=== PATIENT | female | born 1990 | race African-American/Black ===

== ENCOUNTER 2017-02-07 11:17 | Emergency (ER) | payer BC ==
--- NOTE | 2017-02-07 11:36 | ER Document Report ---
HPI - HPI Pain Level: 5 - REPRODUCTIVE Reproductive: DENIES: : - DERM Skin Color: Normal Past Medical History - Social History Family History: Arthritis, CAD, CVA, DM, Hyperlipidemia, Hypertension, Malignancy, Thyroid Disfunction Patient has suicidal ideation: No Patient has homicidal ideation: No Pulmonary Medical History: Reports: Hx Bronchitis, Hx Pneumonia Renal/ Medical History: Denies: Hx Peritoneal Dialysis Past Surgical History: Reports: Hx Tonsillectomy - Immunizations Hx Diphtheria, Pertussis, Tetanus Vaccination: No - declined Vertical Provider Document - INFECTION CONTROL TRAVEL OUTSIDE OF THE [place] IN LAST 30 DAYS: No - RESPIRATORY O2 Sat by Pulse Oximetry: 99 Course - Vital Signs Vital signs: Temp Pulse Resp BP Pulse Ox 98.4 F 102 H 17 121/88 H 99 02/07/17 11:23 02/07/17 11:23 02/07/17 11:23 02/07/17 11:23 02/07/17 11:23
[2017-02-07] MEDS ORDERED: CLINDAMYCIN 600 MG/D5W RTU 50 ML IV ONE (11:41)
[2017-02-07] MEDS ORDERED: DEXAMETHASONE SOD PHOS INJ 10 MG/1 ML VIAL PO ONE (11:43)
--- NOTE | 2017-02-07 11:48 | ER Document Report ---
HPI - HPI Patient complains to provider of: right upper eyelid stye Onset: Other - 3 days ago Onset/Duration: Gradual, Persistent, Worse Pain Level: 5 Context: 26-year-old female with a history of a left eyelid stye that resolved with warm compresses in spontaneous drainage, is now complaining of a stye in the right medial upper lid with swelling and pain that extends along the right upper lid margin. She has a history of MRSA. She states her vision is normal out of the right eye. Associated Symptoms: None Exacerbated by: Movement - Eyelid Relieved by: Denies Similar symptoms previously: Yes - left eyelid Recently seen / treated by doctor: No - ROS ROS below otherwise negative: Yes Systems Reviewed and Negative: Yes All other systems reviewed and negative - REPRODUCTIVE Reproductive: DENIES: : - DERM Skin Color: Normal Past Medical History - General Information source: Patient - Social History Smoking Status: Current Every Day Smoker Frequency of alcohol use: None Drug Abuse: None Lives with: Family Family History: Arthritis, CAD, CVA, DM, Hyperlipidemia, Hypertension, Malignancy, Thyroid Disfunction Patient has suicidal ideation: No Patient has homicidal ideation: No Pulmonary Medical History: Reports: Hx Bronchitis, Hx Pneumonia Renal/ Medical History: Denies: Hx Peritoneal Dialysis Past Surgical History: Reports: Hx Tonsillectomy - Immunizations Hx Diphtheria, Pertussis, Tetanus Vaccination: No - declined Vertical Provider Document - CONSTITUTIONAL Agree With Documented VS: Yes Exam Limitations: No Limitations - INFECTION CONTROL TRAVEL OUTSIDE OF THE [place] IN LAST 30 DAYS: No - HEENT HEENT: Normocephalic, PERRLA. negative: Conjuctival Injection Notes: Medial right upper eyelid abscess at the tear duct, cellulitis extending along the eyelash border, puffy superior upper eyelid, and pink inferior orbital skin - NECK Neck: Supple - RESPIRATORY Respiratory: Breath Sounds Normal, No Respiratory Distress O2 Sat by Pulse Oximetry: 99 - CARDIOVASCULAR Cardiovascular: Regular Rate, Regular Rhythm - MUSCULOSKELETAL/EXTREMETIES Musculoskeletal/Extremeties: KIMBERLY ALVAREZ - NEURO Level of Consciousness: Awake, Alert, Appropriate - DERM Integumentary: Warm, Dry Course - Re-evaluation Re-evalutation: 02/07/17 12:53 Dr. Valenzuela looked at the patient warm compresses oral antibiotics is fine. - Vital Signs Vital signs: Temp Pulse Resp BP Pulse Ox 98.4 F 102 H 17 121/88 H 99 02/07/17 11:23 02/07/17 11:23 02/07/17 11:23 02/07/17 11:23 02/07/17 11:36 - Laboratory Result Diagrams: 02/07/17 12:10 02/07/17 12:10 Discharge - Discharge Clinical Impression: Blepharitis Qualifiers: Blepharitis type: unspecified type Laterality: bilateral Eyelid: both upper and lower Qualified Code(s): H01.001 - Unspecified blepharitis right upper eyelid Stye Qualifiers: Laterality: right Eyelid: upper Qualified Code(s): H00.011 - Hordeolum externum right upper eyelid Condition: Good Disposition: HOME, SELF-CARE Instructions: Clindamycin ([facility]), Use of [id number] Ibuprofen ([facility]), Warm Packs ([facility]), Sty ([facility]), Acetaminophen Additional Instructions: Wash her eyelids with baby shampoo and fingernails to remove makeup and oils Warm compress to the right eye stye 4 times a day for 30 minutes Return to the emergency room if worse Take the antibiotics until gone Return to the emergency room any concerns Please complete the patient satisfaction survey if you get one, and return it.. If you do not receive a survey, then you can go to the [facility] website, [email or web address] and place your comments about your very good care. Thank you very much. It was a pleasure being your medical provider today. Prescriptions: Ibuprofen [Motrin 600 mg Tablet] 600 mg PO Q8HP PRN #30 tablet PRN Reason: Clindamycin HCl [Cleocin 150 mg Capsule] 300 mg PO TID #42 capsule Forms: Return to Work
[2017-02-07 12:24] LABS: ABSOLUTE BASOPHILS # (AUTO) 0.1 10^3/uL (0.0-0.2); ABSOLUTE EOSINOPHILS # (AUTO) 0.1 10^3/uL (0.0-0.6); ABSOLUTE LYMPHOCYTES (AUTO) 2.3 10^3/uL (0.5-4.7); ABSOLUTE MONOCYTES (AUTO) 0.5 10^3/uL (0.1-1.4); BASOPHILS % (AUTO) 1.1 % (0-2); EOSINOPHILS % (AUTO) 1.3 % (0-6); HEMATOCRIT 32.2 % (36.0-47.0); HEMOGLOBIN 11.3 g/dL (12.0-15.5); HGB HCT DIFFERENCE 1.7; LYMPHOCYTES % (AUTO) 38.6 % (13-45); MEAN CORPUSCULAR HEMOGLOBIN 30.6 pg (27.0-33.4); MEAN CORPUSCULAR HGB CONC 35.1 g/dL (32.0-36.0); MEAN CORPUSCULAR VOLUME 87 fl (80-97); MONOCYTES % (AUTO) 8.1 % (3-13); RED BLOOD COUNT 3.69 10^6/uL (3.72-5.28); RED CELL DISTRIBUTION WIDTH 13.4 % (11.5-14.0); SEGMENTED NEUTROPHILS % (AUTO) 50.9 % (42-78)
[2017-02-07 12:37] LABS: ALANINE AMINOTRANSFERASE 29 U/L (9-52); ALBUMIN 4.6 g/dL (3.5-5.0); ALKALINE PHOSPHATASE 66 U/L (38-126); ANION GAP 14 (5-19); ASPARTATE AMINO TRANSFERASE 15 U/L (14-36); BILIRUBIN,DIRECT 0.1 mg/dL (0.0-0.4); BILIRUBIN,TOTAL 0.6 mg/dL (0.2-1.3); BLOOD UREA NITROGEN 14 mg/dL (7-20); CALCIUM 9.4 mg/dL (8.4-10.2); CARBON DIOXIDE 23 mmol/L (22-30); CHLORIDE 106 mmol/L (98-107); CREATININE RESULT 0.73 mg/dL (0.52-1.25); GLUCOSE 91 mg/dL (75-110); POTASSIUM 3.7 mmol/L (3.6-5.0); SODIUM 143.3 mmol/L (137-145); TOTAL PROTEIN 8.3 g/dL (6.3-8.2)
[2017-02-07] MEDS ORDERED: KETOROLAC TROMETHAMINE INJ/PF 30 MG/1 ML SDV IV ONE (12:55)
[2017-02-07 13:22] VITALS: BP 111/75
== END 2017-02-07 13:34 | disposition home or self-care (01) ==
LOC: ER 11:17
DX: H00.011 Hordeolum externum right upper eyelid (principal); H01.001 Unspecified blepharitis right upper eyelid; F17.200 Nicotine dependence, unspecified, uncomplicated; Z86.14 Personal history of Methicillin resistant Staphylococcus aureus infection
CPT/HCPCS: 99283; 96375; 96365; 36415; 85025; 80053; J1885; J1100

== ENCOUNTER 2017-03-31 10:43 | Emergency (ER) | payer BC ==
[2017-03-31 10:47] VITALS: BP 118/78
[2017-03-31] MEDS ORDERED: OXYCODONE-ACETAMINOPHEN 5-325 MG TABLET PO ONE (11:59)
[2017-03-31] MEDS ORDERED: LIDOCAINE 1% INJ-PF (10 MG/ML) 30 ML SDV INJ ONE (12:00)
--- NOTE | 2017-03-31 12:12 | ER Document Report ---
ED Skin Rash/Insect Bite/Abscs - General Chief Complaint: Abscess Stated Complaint: ARM PAIN Time Seen by Provider: 03/31/17 11:46 Mode of Arrival: Ambulatory Information source: Patient Notes: 26-year-old female presents to ED for abscess to both axilla. Started about 3- 4 days ago. Last menstrual period was March 17. Medical history is cellulitis and abscesses. TRAVEL OUTSIDE OF THE [place] IN LAST 30 DAYS: No - HPI Patient complains to provider of: Tender/swollen area Onset: Other - Days ago Onset/Duration: Gradual Quality of pain: Sharp, Throbbing Severity: Severe Pain Level: 5 Skin Character: Abscess Quality of rash: Painful Identify cause: No Exacerbated by: Movement Relieved by: Denies Similar symptoms previously: Yes Recently seen / treated by doctor: No - Related Data Allergies/Adverse Reactions: No Known Allergies Allergy (Verified 03/31/17 10:46) Past Medical History - General Information source: Patient - Social History Smoking Status: Current Some Day Smoker Cigarette use (# per day): Yes - Twice a week Chew tobacco use (# tins/day): No Family History: Arthritis, CAD, CVA, DM, Hyperlipidemia, Hypertension, Malignancy, Thyroid Disfunction Patient has suicidal ideation: No Patient has homicidal ideation: No Pulmonary Medical History: Reports: Hx Bronchitis, Hx Pneumonia EENT Medical History: Reports: None Neurological Medical History: Reports: None Endocrine Medical History: Reports: None Renal/ Medical History: Reports: None Malignancy Medical History: Reports: None GI Medical History: Reports: None Musculoskeltal Medical History: Reports None Skin Medical History: Reports None Psychiatric Medical History: Reports: None Traumatic Medical History: Reports: None Infectious Medical History: Reports: None Past Surgical History: Reports: Hx Tonsillectomy - Immunizations Hx Diphtheria, Pertussis, Tetanus Vaccination: No - declined Review of Systems - Review of Systems Constitutional: No symptoms reported EENT: No symptoms reported Cardiovascular: No symptoms reported Respiratory: No symptoms reported Gastrointestinal: No symptoms reported Genitourinary: No symptoms reported Female Genitourinary: No symptoms reported Musculoskeletal: No symptoms reported Skin: Other - From the bilateral axilla Hematologic/Lymphatic: No symptoms reported Neurological/Psychological: No symptoms reported -: Yes All other systems reviewed and negative Physical Exam - Vital signs Vitals: Temp Pulse Resp BP Pulse Ox 98.5 F 105 H 18 118/78 98 03/31/17 10:46 03/31/17 10:46 03/31/17 10:46 03/31/17 10:46 03/31/17 10:46 Interpretation: Normal - General General appearance: Appears well, Alert - HEENT Head: Normocephalic, Atraumatic Eyes: Normal Pupils: PERRL - Respiratory Respiratory status: No respiratory distress Chest status: Nontender Breath sounds: Normal Chest palpation: Normal - Cardiovascular Rhythm: Regular Heart sounds: Normal auscultation Murmur: No - Abdominal Inspection: Normal Distension: No distension Bowel sounds: Normal Tenderness: Nontender Organomegaly: No organomegaly - Back Back: Normal, Nontender - Extremities General upper extremity: Normal inspection, Nontender, Normal color, Normal ROM , Normal temperature General lower extremity: Normal inspection, Nontender, Normal color, Normal ROM , Normal temperature, Normal weight bearing. No: Geno's sign - Neurological Neuro grossly intact: Yes Cognition: Normal Orientation: AAOx4 Memo Coma Scale Eye Opening: Spontaneous [place] Coma Scale Verbal: Oriented Emmo Coma Scale Motor: Obeys Commands Memo Coma Scale Total: 15 Speech: Normal Motor strength normal: LUE, RUE, LLE, RLE Sensory: Normal - Psychological Associated symptoms: Normal affect, Normal mood - Skin Skin Temperature: Warm Skin Moisture: Dry Skin Color: Normal Skin irregularity: Abscess - Bilateral axilla Course - Vital Signs Vital signs: Temp Pulse Resp BP Pulse Ox 98.5 F 105 H 18 118/78 98 03/31/17 10:46 03/31/17 10:46 03/31/17 11:55 03/31/17 10:46 03/31/17 10:46 Procedures - Incision and Drainage Right axilla Type: Multiple Anesthetic type: 1% Lidocaine mL's of anesthetic: 6 Blade size: 11 I&D procedure: Other Incision Method: Incision made with needle Amount/type of drainage: large amount purulent drainage Left Axilla Type: Multiple Anesthetic type: 1% Lidocaine mL's of anesthetic: 6 Blade size: 11 I&D procedure: Other Incision Method: Incision made by scalpel Amount/type of drainage: large amount of purulent drainage Discharge - Discharge Clinical Impression: Abscess Condition: Stable Disposition: HOME, SELF-CARE Instructions: Family Physicians / Practices Additional Instructions: ABSCESS: You have an abscess (boil). This a pus-forming infection, usually due to staph. Some boils may be left to drain on their own, but most require lancing. From the time the tender lump first appears, it may be three or four days before the abscess is ready to kevan. Local heat and rest help at this stage of treatment. An antibiotic may prevent spread of the infection. Once the abscess is opened, packing may be placed into it. This is done so pus is not sealed inside by premature closure of the cavity. The packing will be removed at your follow-up visit or you may be advised to remove it yourself at home. Sometimes this packing must be replaced a few times during healing. The wound will heal with surprisingly little scar. Depending on the size and location of an abscess, healing can take one to four weeks. You may shower and wash the area around the incision site two or three times a day. Antibiotics may be prescribed, but are usually not necessary after an abscess has been drained. If you develop fever, chills, worsening pain, or increasing swelling in the area, call the doctor or return immediately. POST INCISION AND DRAINAGE: You have had an incision made to allow drainage of an abscess. The incision must remain open so that pus and debris can drain from the wound. If the abscess cavity is large, packing is placed. This keeps the tissues from collapsing and trapping pus inside, while the body shrinks the cavity. The packing may need to be replaced every day or two. The physician will instruct you on the packing. Keep a bulky dressing over the area. Replace it if it becomes saturated with blood or pus. Do not disturb the packing (if present). You may shower and cleanse the area with gentle soap and warm water two or three times a day. Local warmth may be soothing, and may promote faster healing. Return if you develop high fever or chills, or if you note spreading redness, increasing swelling, or increasing tenderness. MRSA CELLULITIS: You have an infection of your skin and underlying soft tissues called cellulitis. This is due to bacteria, which can enter through any break in the skin, or even through an irritated hair follicle. Untreated, cellulitis will usually worsen and may form an abscess which requires draining. Although many bacterial organisms can cause cellulitis and abscess formations, the most likely bacteria is Methicillin-Resistant Staph Aureus, or MRSA for short. Antibiotics are required. Usually, warm packs or warm soaks, and elevation of the infected area are recommended. You should start getting better within 24 to 36 hours. Most infections respond quickly to the right medication. Follow-up care is important, however, to check for abscess (boil) formation, unsuspected foreign body, or resistant infection. If you develop fever, chills, or if the area of infection is becoming rapidly more swollen or painful, call the doctor at once. ORAL NARCOTIC MEDICATION: You have been given a prescription for pain control. This medication is a narcotic. It's best taken with food, as nausea can result if taken on an empty stomach. Don't operate machinery or drive within six hours of taking this medication. Do not combine this medicine with alcohol, or with any medication which can cause sedation (such as cold tablets or sleeping pills) unless you get permission from the physician. Narcotics tend to cause constipation. If possible, drink plenty of fluids and eat a diet high in fiber and fruits. Epsom Salt Soaks Soak the wound area in a container of warm epsom salt water. If you can't get the wound area into a bucket or horvath, use a folded towel soaked in the epsom salt solution and apply to the area. Use clean hot tap water (about the temperature of a very warm bath), mixing in about one (1) teaspoon for every pint of water. Two gallon --> 16 teaspoons Epsom Salts One gallon --> 8 teaspoons Epsom Salts Two quarts --> 4 teaspoons Epsom Salts One quart --> 2 teaspoons Epsom Salts Soak the wound for about 20 minutes while gently moving it around in the water. Repeat this four (4) times a day. CEPHALEXIN: The antibiotic you've been prescribed is a member of the cephalosporin class. This type of antibiotic covers a wide variety of infections, including those of the skin, lungs, and urinary tract. It's useful for staph infections. This antibiotic is slightly similar to the penicillin family. In rare cases , a person who is allergic to penicillin will also be allergic to this medication. If you have had a severe allergic reaction to penicillin, and have not taken this antibiotic since that time, notify your doctor. Antibiotics which cover many germs ("broad spectrum" antibiotics) are more likely to cause diarrhea or "yeast" infections. Women prone to vaginal yeast problems may suffer an attack after taking this antibiotic. In infants, oral thrush (white spots "stuck" on the cheek) or yeast diaper rash may result. See your doctor if these problems occur. Call at once if you develop itching, hives , shortness of breath, or lightheadedness. TRIMETHOPRIM-SULFA: You have been given a prescription for trimethoprim-sulfa (TMS, Septra, Bactrim). This is a combination antibiotic of the sulfa class, often used for urinary tract infections, middle ear infections, bronchitis, shigella intestinal infection, and Pneumocystis pneumonia. TMS is usually well-tolerated. Occasional side effects include nausea and decreased appetite. Septra is not recommended for infants less than two months of age. Do not take this medication if you have experienced severe side effects or allergy to sulfa medicine. You should stop this medicine at once and contact your physician if you develop any rash, joint pain, shortness of breath, bruising, or jaundice ( yellow color in the skin), or if you develop any other new or unusual symptoms. FOLLOW-UP CARE: Most simple abscesses will not require a follow up visit. If you had packing placed in the abscess, remove it as instructed by the physician. If you have been referred to a physician for follow-up care, call the physicians office for an appointment as you were instructed or within the next two days. If you experience worsening or a significant change in your symptoms, return to the Emergency Department at any time for re-evaluation. Prescriptions: Cephalexin Monohydrate [Keflex 500 mg Capsule] 500 mg PO QID #28 capsule Hydrocodone/Acetaminophen [[place] 5-325 mg Tablet] 1 tab PO TIDP PRN #7 tablet PRN Reason: Sulfamethoxazole/Trimethoprim [Septra-Ds 800-160 mg Tablet] 1 tab PO BID #20 tablet Forms: Smoking Cessation Education, Return to Work
== END 2017-03-31 14:15 | disposition home or self-care (01) ==
LOC: ER 10:43
PROC: 0H9BXZZ Drainage of Right Upper Arm Skin, External Approach (ICD-10-PCS; principal; 2017-03-31)
PROC: 0H9CXZZ Drainage of Left Upper Arm Skin, External Approach (ICD-10-PCS; 2017-03-31)
DX: L02.412 Cutaneous abscess of left axilla (principal); L02.411 Cutaneous abscess of right axilla; F17.210 Nicotine dependence, cigarettes, uncomplicated
CPT/HCPCS: 10061; 99283; 87070; 87205; 87075; 87077; 87186; J3490

== ENCOUNTER 2017-04-16 19:00 | Emergency (ER) | payer BC ==
[2017-04-16] MEDS ORDERED: PROMETHAZINE HCL 25 MG TABLET PO ONE (21:23)
[2017-04-16] MEDS ORDERED: OXYCODONE-ACETAMINOPHEN 5-325 MG TABLET PO ONE (21:23)
--- NOTE | 2017-04-16 21:26 | ER Document Report ---
ED Medical Screen (RME) - General Chief Complaint: Abdominal Pain Stated Complaint: STOMACH PAIN Time Seen by Provider: 04/16/17 21:20 Notes: 26-year-old female, has 2 complaints. First is about 3 days of generalized abdominal pain, worst in the lower abdomen, also radiates to flank on both sides occasionally, associated vomiting and fever/chills yesterday, no vomiting today. Patient also states she has an abscess in her left axillary area which had some drainage but is now getting harder, she has had drained abscesses in the past. P last month. She denies any daily medications. TRAVEL OUTSIDE OF THE [place] IN LAST 30 DAYS: No - Related Data Allergies/Adverse Reactions: No Known Allergies Allergy (Verified 03/31/17 10:46) Past Medical History Pulmonary Medical History: Reports: Hx Bronchitis, Hx Pneumonia Renal/ Medical History: Denies: Hx Peritoneal Dialysis Past Surgical History: Reports: Hx Tonsillectomy - Immunizations Hx Diphtheria, Pertussis, Tetanus Vaccination: No - declined Physical Exam - Vital signs Vitals: Temp Pulse Resp BP Pulse Ox 98.5 F 84 18 126/87 H 100 04/16/17 19:18 04/16/17 19:18 04/16/17 19:18 04/16/17 19:18 04/16/17 19:18 - Abdominal Tenderness: Tender - generalized non-specific tenderness - Skin Skin irregularity: Abscess - indurated abscess with dried discharge over the head in left axilla Course - Vital Signs Vital signs: Temp Pulse Resp BP Pulse Ox 98.5 F 84 18 126/87 H 100 04/16/17 19:18 04/16/17 19:18 04/16/17 19:18 04/16/17 19:18 04/16/17 19:18
[2017-04-16 22:08] LABS: ABSOLUTE EOSINOPHILS # (AUTO) 0.1 10^3/uL (0.0-0.6); ABSOLUTE LYMPHOCYTES (AUTO) 2.6 10^3/uL (0.5-4.7); ABSOLUTE MONOCYTES (AUTO) 0.7 10^3/uL (0.1-1.4); ABSOLUTE NEUT (AUTO) 3.4 10^3/uL (1.7-8.2); BASOPHILS % (AUTO) 0.7 % (0-2); HEMATOCRIT 35.9 % (36.0-47.0); HGB HCT DIFFERENCE 0.1; MEAN CORPUSCULAR HEMOGLOBIN 29.8 pg (27.0-33.4); MEAN CORPUSCULAR HGB CONC 33.3 g/dL (32.0-36.0); MEAN CORPUSCULAR VOLUME 90 fl (80-97); MONOCYTES % (AUTO) 9.7 % (3-13); RED BLOOD COUNT 4.01 10^6/uL (3.72-5.28); RED CELL DISTRIBUTION WIDTH 12.5 % (11.5-14.0); SEGMENTED NEUTROPHILS % (AUTO) 50.6 % (42-78); WHITE BLOOD COUNT 6.7 10^3/uL (4.0-10.5)
[2017-04-16 22:22] LABS: ALANINE AMINOTRANSFERASE 28 U/L (9-52); ALBUMIN 4.9 g/dL (3.5-5.0); ALKALINE PHOSPHATASE 66 U/L (38-126); ANION GAP 14 (5-19); ASPARTATE AMINO TRANSFERASE 15 U/L (14-36); BILIRUBIN,DIRECT 0.3 mg/dL (0.0-0.4); BILIRUBIN,TOTAL 0.4 mg/dL (0.2-1.3); BLOOD UREA NITROGEN 7 mg/dL (7-20); CALCIUM 9.8 mg/dL (8.4-10.2); CARBON DIOXIDE 24 mmol/L (22-30); CHLORIDE 103 mmol/L (98-107); CREATININE RESULT 0.71 mg/dL (0.52-1.25); GLUCOSE 94 mg/dL (75-110); LIPASE 56.1 U/L (23-300); POTASSIUM 4.1 mmol/L (3.6-5.0); SODIUM 141.3 mmol/L (137-145); TOTAL PROTEIN 9.5 g/dL (6.3-8.2)
[2017-04-16 22:23] LABS: APPEARANCE,URINE SLIGHTLY-CLOUDY; BILIRUBIN,URINE NEGATIVE (NEGATIVE); GLUCOSE, URINE NEGATIVE (NEGATIVE); KETONES,URINE NEGATIVE (NEGATIVE); LEUKOCYTE ESTERASE,URINE TRACE (NEGATIVE); NITRITE,URINE NEGATIVE (NEGATIVE); PROTEIN,URINE NEGATIVE (NEGATIVE); URINE SPECIFIC GRAVITY 1.017; UROBILINOGEN,URINE NEGATIVE mg/dL (<2.0)
--- NOTE | 2017-04-16 22:39 | ER Document Report ---
ED General - General Chief Complaint: Abdominal Pain Stated Complaint: STOMACH PAIN Time Seen by Provider: 04/16/17 21:20 TRAVEL OUTSIDE OF THE [place] IN LAST 30 DAYS: No - HPI Notes: Patient is a 26yo female who presents with 2 concerns: First concern is generalized abd pain with associated nausea x1 week. Pt states that she did vomit several times yesterday (without hematemesis), but none today. She also has had loose stool x1-2 days without any melena or hematochezia. The abd pain will radiate to her left flank "a little." Her pain is described as "cramping." Pt reports a fever yesterday but none since then. She has been taking ibuprofen for her discomfort. She has had dec appetite/fluids, but is able to keep food down when she is taking her meds. + general body aches. Denies any URI, sore throat, CP, sob, dyspnea, dysuria, hematuria, urinary frequency, vaginal discharge/odor, vaginal bleeding, or rash. Second concern is an abscess to her left axilla x2-3 days. Pt has a h/o MRSA. She had to have an I&D performed 31 March 2017 and was given keflex/bactrim. She has been using moist warm compresses without relief. Pt reports pain. She has noticed some bloody discharge. Pt has not been shaving her armpits for the last month due to recurrent infections. - Related Data Allergies/Adverse Reactions: No Known Allergies Allergy (Verified 03/31/17 10:46) Past Medical History - Social History Smoking Status: Never Smoker Family History: Arthritis, CAD, CVA, DM, Hyperlipidemia, Hypertension, Malignancy, Thyroid Disfunction Patient has suicidal ideation: No Patient has homicidal ideation: No Pulmonary Medical History: Reports: Hx Bronchitis, Hx Pneumonia Renal/ Medical History: Denies: Hx Peritoneal Dialysis Past Surgical History: Reports: Hx Tonsillectomy - Immunizations Hx Diphtheria, Pertussis, Tetanus Vaccination: No - declined Review of Systems - Review of Systems Notes: REVIEW OF SYSTEMS: CONSTITUTIONAL : see hpi EENT: Denies eye, ear, throat, or mouth pain or symptoms. Denies nasal or sinus congestion or discharge. Denies throat, tongue, or mouth swelling or difficulty swallowing. CARDIOVASCULAR: Denies chest pain. Denies palpitations or racing or irregular heart beat. Denies ankle edema. RESPIRATORY: Denies cough, cold, or chest congestion. Denies shortness of breath, difficulty breathing, or wheezing. GASTROINTESTINAL: see hpi GENITOURINARY: Denies difficulty urinating, painful urination, burning, frequency, blood in urine, or discharge. FEMALE GENITOURINARY: Denies vaginal bleeding, heavy or abnormal periods, irregular periods. Denies vaginal discharge or odor. MUSCULOSKELETAL: see hpi SKIN: see hpi NEUROLOGICAL: Denies confusion or altered mental status. Denies passing out or loss of consciousness. Denies dizziness or lightheadedness. Denies headache. Denies weakness or paralysis or loss of use of either side. Denies problems with gait or speech. Denies sensory loss, numbness, or tingling. Denies seizures. ALL OTHER SYSTEMS REVIEWED AND NEGATIVE. Dictation was performed using [employer] voice recognition software Physical Exam - Vital signs Vitals: Temp Pulse Resp BP Pulse Ox 98.5 F 84 18 126/87 H 100 04/16/17 19:18 04/16/17 19:18 04/16/17 19:18 04/16/17 19:18 04/16/17 19:18 Notes: PHYSICAL EXAMINATION: GENERAL: Well-appearing, well-nourished and in no acute distress. HEAD: Atraumatic, normocephalic. EYES: Pupils equal round and reactive to light, extraocular movements intact, sclera anicteric, conjunctiva are normal. ENT: EAC clear b/l. TM's intact b/l without erythema, fluid, or perforation. Nares patent and without discharge. oropharynx clear without exudates. No tonsilar hypertrophy or erythema. Moist mucous membranes. No sinus tenderness. NECK: Normal range of motion, supple without lymphadenopathy. No nuchal rigidity/meningismus. LUNGS: Breath sounds clear to auscultation bilaterally and equal. No wheezes rales or rhonchi. HEART: Regular rate and rhythm without murmurs, rubs, gallops. ABDOMEN: Soft, nondistended abdomen. No guarding, no rebound. No masses appreciated. Normal bowel sounds present. No CVA tenderness bilaterally. + tenderness to light palpation of general abdomen. [place] negative. Psoas/ obturator/rosving's negative. No pulsatile mass appreciated. Musculoskeletal: FROM to passive/active. Strength 5+/5. Extremities: No cyanosis, clubbing, or edema b/l. Peripheral pulses 2+. Capillary refill less than 3 seconds. NEUROLOGICAL: Cranial nerves grossly intact. Normal speech, normal gait. Normal sensory, motor exams PSYCH: Normal mood, normal affect. SKIN: + erythema, swelling, abscess left axilla (approx [id number]) with small amount of bloody discharge noted. + induration. + small (0.25-0.cm abscess rt axilla), + small white pustular superficial pocket noted. + tenderness, no d/c. Minimal induration to rt.. No streaks. Course - Re-evaluation Re-evalutation: 04/17/17 02:22 Patient is an afebrile, well-hydrated, 26yo female who presents with an abscess , suspect MRSA based on history along with abdominal pain NOS, suspect gastroenteritis. Vitals are stable. Pt resistent to thorough I&D due to low pain tolerance. CBC/CMP unremarkable. Abd US unremarkable. wound culture pending, but suspect MRSA. I will cover her with Doxy 100mg PO BID x10 days. Conservative measures otherwise along with wound care as directed. Based on work up, H&P, I have low suspicion for acute appendicitis, obstruction, cholecystitis, diverticulitis, hernia, pancreatitis, PID (also covered with doxy ), ectopic preg, ovarian abscess/torsion, and/or perforated ulceration. Pt advised to recheck with PCM in 2-3 days for a recheck, may return to the ED for recheck as well. Return to the ED otherwise with any worsening symptoms. Pt/ BF in agreement. - Vital Signs Vital signs: Temp Pulse Resp BP Pulse Ox 98.5 F 84 18 126/87 H 100 04/16/17 19:18 04/16/17 19:18 04/16/17 19:18 04/16/17 19:18 04/16/17 19:18 - Laboratory Result Diagrams: 04/16/17 21:54 04/16/17 21:54 Laboratory results interpreted by me: 04/16/17 04/16/17 04/16/17 21:54 21:54 21:54 Hct 35.9 L Total Protein 9.5 H Ur Leukocyte Esterase TRACE H Urine Ascorbic Acid 40 H Procedures - Incision and Drainage Left Arm Time completed: 01:30 Type: Simple Anesthetic type: 1% Lidocaine mL's of anesthetic: 8 Blade size: 11 I&D procedure: Shurclens applied, Sterile dressing applied, Other - sterile gauze pack Incision Method: Incision made by scalpel Amount/type of drainage: moderate pustular/bloody material Notes: 04/17/17 0130 Incision and drainage procedure, risks, benefits reviewed with the patient. Verbal and written consent obtained. Sterile technique utilized. The area was extensively cleansed utilizing shurclens and saline. A 21-gauge needle was utilized to anesthetize the area using 8 mL's of 1% lidocaine w/o epinephrine. Once adequate anesthesia was provided, a #11 scalpel was utilized to make a 3 cm incision at the site of the abscess. Superficial tissue excised to create a wide opening Moderate amount of pustular/bloody material was expressed. Wound culture obtained. Hemostats were then utilized to break up any remaining muscular pockets within the abscess. The wound was then lightly packed using sterile gauze. Wound dressing and triple antibiotic placed. Minimal blood loss (approximately 2-3 cc's). Patient did not allow for complete break up of tissue due to discomfort. Pt seemed very sensitive to pain in general. No complications. Discharge - Discharge Clinical Impression: Abscess, MRSA (methicillin resistant Staphylococcus aureus) Abdominal pain Qualifiers: Abdominal location: generalized Qualified Code(s): R10.84 - Generalized abdominal pain Condition: Stable Disposition: HOME, SELF-CARE Instructions: Abdominal Pain ([facility]), Abscess ([facility]), Antibiotic Therapy ([facility]), Antinausea Medication ([facility]), MRSA Cellulitis ([facility]), Oral Narcotic Medication ( [facility]), Post Incision and Drainage Additional Instructions: Do not shower or bathe for 24 hours. After 24 hours she may shower but no submersion of the wound under water. Keep the original dressing on the wound for 24 hours unless the drainage stops through. Change the dressing daily thereafter and use a small amount of triple antibiotic ointment over the open wound. Epsom salt soaks. Return to the ED and/or your PCM in 2-3 days for recheck and continue direction for wound packing. Monitor for any signs of worsening pain or redness, streaks, and/or fever. Push fluids. Return to the ED if noticing any of the above symptoms and/or worsening abdominal pain, nausea /vomiting, bloody vomit, blood in stool, worsening pains as needed. Take medications as directed. Prescriptions: Doxycycline Hyclate 100 mg PO BID #20 capsule Hydrocodone/Acetaminophen [Independence 5-325 mg Tablet] 1 tab PO BID PRN #10 tablet PRN Reason: Ondansetron [Zofran Odt 4 mg Tablet] 1 - 2 tab PO Q4H PRN #15 tab.rapdis PRN Reason: For Nausea/Vomiting Forms: Elevated Blood Pressure
[2017-04-16] MEDS ORDERED: LIDOCAINE 1% INJ-PF (10 MG/ML) 30 ML SDV INJ ONE (23:46)
--- NOTE | 2017-04-17 01:36 | RADIOLOGY REPORT (SQ) ---
EXAM DESCRIPTION: U/S ABDOMEN COMPLETE W/O DOP COMPLETED DATE/TIME: 04/17/2017 12:57 am REASON FOR STUDY: pelvic/generalized abdominal pain COMPARISON: None. TECHNIQUE: Dynamic and static grayscale images acquired of the abdomen and recorded on PACS. Additio nal selected color Doppler and spectral images recorded. LIMITATIONS: None. FINDINGS: PANCREAS: No masses. Visualized pancreatic duct normal caliber. LIVER: No masses. Echotexture normal. LIVER VASCULATURE: Normal directional flow of the main portal vein and hepatic veins. GALLBLADDER: No stones. Normal wall thickness. No pericholecystic fluid. ULTRASOUND-DETECTED VO'S SIGN: Negative. INTRAHEPATIC DUCTS AND COMMON DUCT: 0.3 cm diameter CBD and intrahepatic ducts normal caliber. No uziel ling defects. INFERIOR VENA CAVA: Normal flow. AORTA: No aneurysm. RIGHT KIDNEY: Normal size. Normal echogenicity. No solid or suspicious masses. No hydronephros is. No calcifications. LEFT KIDNEY: Normal size. Normal echogenicity. No solid or suspicious masses. No hydronephrosi s. No calcifications. SPLEEN: Normal size. No solid masses. PERITONEAL AND PLEURAL SPACES: No ascites or effusions. OTHER: No other significant finding. IMPRESSION: NORMAL ABDOMINAL ULTRASOUND. TECHNICAL DOCUMENTATION: JOB ID: [id number] [employer]- All Rights Reserved
[2017-04-17] MEDS ORDERED: OXYCODONE HCL IR 5 MG TABLET PO ONE (02:11)
[2017-04-17 03:33] VITALS: BP 128/66
== END 2017-04-17 03:31 | disposition home or self-care (01) ==
LOC: ER 19:00
PROC: 0H9CXZZ Drainage of Left Upper Arm Skin, External Approach (ICD-10-PCS; principal; 2017-04-16)
DX: L02.412 Cutaneous abscess of left axilla (principal); L02.411 Cutaneous abscess of right axilla; B95.62 Methicillin resistant Staphylococcus aureus infection as the cause of diseases classified elsewhere; R10.84 Generalized abdominal pain; R11.2 Nausea with vomiting, unspecified
CPT/HCPCS: 99284; 36415; 87070; 87205; 83690; 85025; 81025; 87075; 87077; 80053; 81001; 87186; 76700; 10060; J3490

== ENCOUNTER 2018-02-24 17:35 | Emergency (ER) | payer BC ==
--- NOTE | 2018-02-24 17:45 | ER Document Report ---
HPI - HPI Patient complains to provider of: slipped and fell onto both knees Onset: Yesterday - on cement block Quality of pain: Achy Pain Level: 4 Context: 27 yo female tripped and fell onto both bent knees yesterday. Left recovered but the right knee hurts to bend it, had trouble sleeping due to pain. Work [employer] worked today, limped all day. Associated Symptoms: Chest pain Exacerbated by: Walking Relieved by: Denies Similar symptoms previously: No Recently seen / treated by doctor: No - ROS ROS below otherwise negative: Yes Systems Reviewed and Negative: Yes All other systems reviewed and negative - REPRODUCTIVE Reproductive: DENIES: : Past Medical History - General Information source: Patient - Social History Smoking Status: Current Some Day Smoker Frequency of alcohol use: Occasional Drug Abuse: None Occupation: [employer] Lives with: Family Family History: Arthritis, CAD, CVA, DM, Hyperlipidemia, Hypertension, Malignancy, Thyroid Disfunction Pulmonary Medical History: Reports: Hx Bronchitis, Hx Pneumonia Renal/ Medical History: Denies: Hx Peritoneal Dialysis Past Surgical History: Reports: Hx Tonsillectomy - Immunizations Hx Diphtheria, Pertussis, Tetanus Vaccination: No - declined Vertical Provider Document - CONSTITUTIONAL Agree With Documented VS: Yes Exam Limitations: No Limitations General Appearance: No Apparent Distress - INFECTION CONTROL TRAVEL OUTSIDE OF THE [place] IN LAST 30 DAYS: No - HEENT HEENT: Normocephalic - NECK Neck: Supple - MUSCULOSKELETAL/EXTREMETIES Musculoskeletal/Extremeties: Tender - anterior bruised right knee, patellar tendon intact, hurts to flex it., Edema, Eccymosis Notes: no effusion - NEURO Level of Consciousness: Awake, Alert - DERM Integumentary: Warm, Dry Course - Re-evaluation Re-evalutation: 02/24/18 18:42 radiologist said possible stress fracture distal femur, consult dr pond, knee immobilizer, crutches, send to ortho Procedures - Immobilization Right Knee Time completed: 18:46 Pre-Proc Neuro Vasc Exam: Normal Immobilizer type: Crutches, Knee immobilizer Performed by: PCT Post-Proc Neuro Vasc Exam: Normal Alignment checked and good: Yes Discharge - Discharge Clinical Impression: right knee contusion, possible femur stress fracture Condition: Good Disposition: HOME, SELF-CARE Instructions: Use of Crutches ([facility]), Knee Immobilizing Splint ([facility]), Fracture ( [facility]) Additional Instructions: radiologist suggested possible distal left femur stress fracture use the knee immobilizer and crutches call for orthopedic appt this week for follow up motrin for pain Prescriptions: Ibuprofen [Motrin 600 mg Tablet] 600 mg PO Q8HP PRN #30 tablet PRN Reason: Referrals: RASHMI COOK MD [ACTIVE STAFF] - Follow up tomorrow
--- NOTE | 2018-02-24 18:09 | RADIOLOGY REPORT (SQ) ---
EXAM DESCRIPTION: KNEE RIGHT 4 VIEWS COMPLETED DATE/TIME: 02/24/2018 6:00 pm REASON FOR STUDY: pain, injury COMPARISON: None. NUMBER OF VIEWS: Four views. TECHNIQUE: AP, lateral, and both oblique radiographic images acquired of the right knee. LIMITATIONS: None. FINDINGS: MINERALIZATION: Normal. BONES: No acute fracture or dislocation. There is a focal area of cortical thickening along the medi al cortex of the distal femoral diaphysis and the possibility of a stress fracture should be consider ed. Clinical correlation is recommended JOINT: No effusion. SOFT TISSUES: No soft tissue swelling. No radio-opaque foreign body. OTHER: No other significant finding. IMPRESSION: No acute fracture dislocation. There is a focal area of cortical thickening along the m edial cortex of the distal femoral diaphysis as noted above and the possibility of a stress fracture should be considered. Clinical correlation is recommended. Other findings as noted above. TECHNICAL DOCUMENTATION: JOB ID: [id number] [employer]- All Rights Reserved Reading location - IP/workstation name: [email or web address]
[2018-02-24 18:50] VITALS: BP 125/72
== END 2018-02-24 18:52 | disposition home or self-care (01) ==
LOC: ER 17:35
DX: S80.01XA Contusion of right knee, initial encounter (principal); M25.561 Pain in right knee; W01.0XXA Fall on same level from slipping, tripping and stumbling without subsequent striking against object, initial encounter; Y92.481 Parking lot as the place of occurrence of the external cause; F17.200 Nicotine dependence, unspecified, uncomplicated
CPT/HCPCS: 99283; 73564; L1830

== ENCOUNTER 2018-04-05 10:34 | Emergency (ER) | payer BC, OTHER ==
[2018-04-05 10:41] VITALS: BP 125/80
--- NOTE | 2018-04-05 11:00 | ER Document Report ---
HPI - HPI Patient complains to provider of: Sore throat Onset: Other - 1 month Quality of pain: Sharp Pain Level: 5 Context: 27-year-old female is complaining of a sore in her mouth for a month. She went to the dentist and he called it an ulcer but is scheduled for an appointment on April 14 with an oral surgeon to have a biopsied. They also found some lymph nodes under her chin and told her to come to the emergency room to be checked. The second thing she is complaining of is a rash that comes and goes. No fever or chills. No diabetes HIV or immune system problems. Associated Symptoms: None Exacerbated by: Denies Relieved by: Denies Similar symptoms previously: Yes Recently seen / treated by doctor: Yes - ROS ROS below otherwise negative: Yes Systems Reviewed and Negative: Yes All other systems reviewed and negative - REPRODUCTIVE Reproductive: DENIES: : Past Medical History - General Information source: Patient - Social History Smoking Status: Unknown if Ever Smoked Frequency of alcohol use: None Drug Abuse: None Lives with: Family Family History: Arthritis, CAD, CVA, DM, Hyperlipidemia, Hypertension, Malignancy, Thyroid Disfunction Pulmonary Medical History: Reports: Hx Bronchitis, Hx Pneumonia Renal/ Medical History: Denies: Hx Peritoneal Dialysis Past Surgical History: Reports: None, Hx Tonsillectomy - Immunizations Hx Diphtheria, Pertussis, Tetanus Vaccination: No - declined Vertical Provider Document - CONSTITUTIONAL Agree With Documented VS: Yes Exam Limitations: No Limitations General Appearance: No Apparent Distress - INFECTION CONTROL TRAVEL OUTSIDE OF THE [place] IN LAST 30 DAYS: No - HEENT HEENT: Normocephalic. negative: Conjuctival Injection, Pharyngeal Erythema - NECK Neck: Supple Notes: Small submental lymph nodes, a few small pimples on her chin, white ulceration behind second molar in the lower right. - RESPIRATORY Respiratory: Breath Sounds Normal, No Respiratory Distress - CARDIOVASCULAR Cardiovascular: Regular Rate, Regular Rhythm - NEURO Level of Consciousness: Awake - DERM Integumentary: Rash - Diffuse mild urticaria Course - Vital Signs Vital signs: Temp Pulse Resp BP Pulse Ox 99.4 F 85 16 125/80 99 04/05/18 10:39 04/05/18 10:39 04/05/18 10:39 04/05/18 10:39 04/05/18 10:39 Discharge - Discharge Clinical Impression: Oral ulcer, Urticaria, Submental adenopathy Condition: Good Disposition: HOME, SELF-CARE Instructions: Acid-Suppressing Medication ([facility]), Acute Urticaria ([facility]), Use of Diphenhydramine, Sore Throat ([facility]), Ulcer ([facility]) Additional Instructions: See the oral surgeon on April 14 for a biopsy of the oral ulcer as planned Magic mouthwash for the discomfort [id number] Benadryl 50 mg every 4-6 h for rash and [id number] Pepcid 0mg per day for the hives See the metal products viewer if the rash persists Prescriptions: Nystatin/Dexameth/Diphen [Magic Mouthwash ([facility] Formula) Susp] 5 ml PO QID #120 ml Referrals: PAT JEAN DO [ACTIVE STAFF] - Follow up as needed
== END 2018-04-05 11:27 | disposition home or self-care (01) ==
LOC: ER 10:34
DX: K12.1 Other forms of stomatitis (principal); R59.0 Localized enlarged lymph nodes; L50.9 Urticaria, unspecified; R23.8 Other skin changes
CPT/HCPCS: 99282

== ENCOUNTER → 2018-04-07 | Outpatient (CLI) | payer BC ==
--- NOTE | 2018-04-08 07:08 | RADIOLOGY REPORT (SQ) ---
EXAM DESCRIPTION: MRI RT LOWER JOINT WITHOUT COMPLETED DATE/TIME: 04/07/2018 6:31 pm REASON FOR STUDY: M25.561 PAIN IN RIGHT KNEE M25.561 PAIN IN RIGHT KNEE COMPARISON: None. TECHNIQUE: Rightknee images acquired and stored on PACS. Multiplanar images include fat sensitive s equences as T1, water sensitive sequences as FST2 or STIR, cartilage sensitive sequences as FSPD, and gradient echo sequences. LIMITATIONS: None. FINDINGS: JOINT AND BURSAE: No effusion. BONE CORTEX AND MARROW: No alteration of signal to suggest marrow replacement. No worrisome bone lesi ons. No occult fracture. ACL: Intact. No degeneration or ganglion cyst. PCL: Intact. MCL: Intact. No periligamentous edema or fluid. LCL: Intact. No periligamentous edema or fluid. MEDIAL MENISCUS: Small undersurface tear posterior horn medial meniscus, best shown on coronal image 17 and sagittal image 19. No parameniscal cysts. LATERAL MENISCUS: No tears. No abnormal signal. MEDIAL COMPARTMENT: Cartilage preserved. No bone bruises or reactive marrow edema. No osteophytes. LATERAL COMPARTMENT: Cartilage preserved. No bone bruises or reactive marrow edema. No osteophytes. PATELLA: No chondromalacia. No subchondral cysts. Medial and lateral retinacula intact. EXTENSOR MECHANISM: Intact. Quadriceps and patella tendons normal. SOFT TISSUES: Adjacent muscles and subcutaneous tissues normal. Normal flow void in popliteal artery and vein. OTHER: No other significant finding. IMPRESSION: Small undersurface tear, posterior horn medial meniscus. TECHNICAL DOCUMENTATION: JOB ID: [id number] [employer]- All Rights Reserved Reading location - IP/workstation name: [email or web address]
== END ==
LOC: RAD 16:26
PROVIDERS: ATTEND Orthopaedic Surgery
DX: M25.561 Pain in right knee (principal); S83.241A Other tear of medial meniscus, current injury, right knee, initial encounter; X58.XXXA Exposure to other specified factors, initial encounter

== ENCOUNTER 2018-05-28 17:04 | Emergency (ER) | payer BC ==
[2018-05-28 17:12] VITALS: BP 131/81
--- NOTE | 2018-05-28 17:28 | ER Document Report ---
ED Medical Screen (RME) - General Chief Complaint: Foot Pain Stated Complaint: foot pain Time Seen by Provider: 05/28/18 17:27 Mode of Arrival: Ambulatory Information source: Patient TRAVEL OUTSIDE OF THE [place] IN LAST 30 DAYS: No - HPI Patient complains to provider of: L foot pain Onset: This morning - pt with c/o L foot pain starting earlier today. No trauma - Related Data Allergies/Adverse Reactions: No Known Allergies Allergy (Verified 05/28/18 17:26) Past Medical History Pulmonary Medical History: Reports: Hx Bronchitis, Hx Pneumonia Renal/ Medical History: Denies: Hx Peritoneal Dialysis Past Surgical History: Reports: Hx Tonsillectomy - Immunizations Hx Diphtheria, Pertussis, Tetanus Vaccination: No - declined Physical Exam - Vital signs Vitals: Temp Pulse Resp BP Pulse Ox 98.7 F 97 16 131/81 H 99 05/28/18 17:09 05/28/18 17:09 05/28/18 17:09 05/28/18 17:09 05/28/18 17:09 Course - Vital Signs Vital signs: Temp Pulse Resp BP Pulse Ox 98.7 F 97 16 131/81 H 99 05/28/18 17:09 05/28/18 17:09 05/28/18 17:09 05/28/18 17:09 05/28/18 17:09 Doctor's Discharge - Discharge Referrals: RASHMI COOK MD [Primary Care Provider] - Follow up as needed
--- NOTE | 2018-05-28 18:02 | ER Document Report ---
HPI - HPI Patient complains to provider of: right plantar foot pain Onset: Yesterday Pain Level: 5 Context: 27-year-old female complaining of plantar left foot pain that started yesterday. There is also some swelling. When she walks on her heels she had swelling in the forefoot and then when she started walking on her toes today she had swelling in the heel. Is also an area of erythema in the midfoot that is not due to a shoe and she states it was bluish green yesterday and now red today. Fever or chills. Associated Symptoms: None Exacerbated by: Walking Relieved by: Denies Similar symptoms previously: No Recently seen / treated by doctor: No - ROS ROS below otherwise negative: Yes Systems Reviewed and Negative: Yes All other systems reviewed and negative - REPRODUCTIVE Reproductive: DENIES: : - MUSCULOSKELETAL Musculoskeletal: REPORTS: Extremity pain Past Medical History - General Information source: Patient - Social History Smoking Status: Never Smoker Frequency of alcohol use: None Drug Abuse: None Lives with: Family Family History: Arthritis, CAD, CVA, DM, Hyperlipidemia, Hypertension, Malignancy, Thyroid Disfunction Patient has suicidal ideation: No Patient has homicidal ideation: No Pulmonary Medical History: Reports: Hx Bronchitis, Hx Pneumonia Renal/ Medical History: Denies: Hx Peritoneal Dialysis Past Surgical History: Reports: Hx Tonsillectomy - Immunizations Hx Diphtheria, Pertussis, Tetanus Vaccination: No - declined Vertical Provider Document - CONSTITUTIONAL Agree With Documented VS: Yes Exam Limitations: No Limitations - INFECTION CONTROL TRAVEL OUTSIDE OF THE [place] IN LAST 30 DAYS: No - MUSCULOSKELETAL/EXTREMETIES Musculoskeletal/Extremeties: MAEW, FROM, Tender - platar fascia, 2+ DP, macular pink 2.5 cm area mid arch with 6 cm linear ascending possible lyphangitis, Edema - plantar left foot, - NEURO Level of Consciousness: Alert Motor/Sensory: No Motor Deficit, No Sensory Deficit Course - Re-evaluation Re-evalutation: 05/28/18 18:33 pt denies . No known allergies, the left foot x-ray is negative. We have ledbetter the red area and gone over the instructions with her and she agrees and understands. - Vital Signs Vital signs: Temp Pulse Resp BP Pulse Ox 98.7 F 97 16 131/81 H 99 05/28/18 17:09 05/28/18 17:09 05/28/18 17:09 05/28/18 17:09 05/28/18 17:09 Discharge - Discharge Clinical Impression: Left plantar Fasciitis, Foot erythema Condition: Good Disposition: HOME, SELF-CARE Instructions: Acetaminophen, Cephalexin ([facility]), Ibuprofen (General) ([facility]), Plantar Fasciitis or Heel Spur ([facility]), Tendonitis ([facility]) Additional Instructions: Cool compress to the foot Antibiotics You need to return if the redness does not go away or goes higher than the purple marking Tylenol Motrin Crutches See the mold sprayer if it persists Prescriptions: Ibuprofen [Motrin 600 mg Tablet] 600 mg PO Q8HP PRN #30 tablet PRN Reason: Cephalexin Monohydrate [Keflex 500 mg Capsule] 500 mg PO QID #28 capsule Forms: Return to Work Referrals: RASHMI COOK MD [Primary Care Provider] - Follow up as needed
--- NOTE | 2018-05-28 18:06 | RADIOLOGY REPORT (SQ) ---
EXAM DESCRIPTION: FOOT LEFT COMPLETE COMPLETED DATE/TIME: 05/28/2018 5:54 pm REASON FOR STUDY: L foot pain COMPARISON: None. NUMBER OF VIEWS: Three views. TECHNIQUE: AP, lateral and oblique radiographic images acquired of the left foot. LIMITATIONS: None. FINDINGS: MINERALIZATION: Normal. BONES: No acute fracture or dislocation. No worrisome bone lesions. JOINTS: No effusions. SOFT TISSUES: No soft tissue swelling. No foreign body. OTHER: No other significant finding. IMPRESSION: NEGATIVE STUDY OF THE LEFT FOOT. NO RADIOGRAPHIC EVIDENCE OF ACUTE INJURY. TECHNICAL DOCUMENTATION: JOB ID: [id number] [employer]- All Rights Reserved Reading location - IP/workstation name: [email or web address]
== END 2018-05-28 19:03 | disposition home or self-care (01) ==
LOC: ER 17:04
DX: M72.2 Plantar fascial fibromatosis (principal); L53.9 Erythematous condition, unspecified
CPT/HCPCS: 99283

== ENCOUNTER 2018-07-02 08:20 | Emergency (ER) | payer BC ==
--- NOTE | 2018-07-02 09:17 | ER Document Report ---
ED Skin Rash/Insect Bite/Abscs - General Chief Complaint: Abscess Stated Complaint: POSSIBLE SPIDER BITE Time Seen by Provider: 07/02/18 09:05 Mode of Arrival: Ambulatory Information source: Patient Notes: 27-year-old female presents to ED for an abscess to the right hip. She states it has been there for 2 weeks and she has not seen a doctor yet. Patient is alert and oriented respirations regular and unlabored states she has a history of MRSA. She is able to walk with a limp. TRAVEL OUTSIDE OF THE [place] IN LAST 30 DAYS: No - HPI Onset: Other - 2 weeks Onset/Duration: Gradual, Persistent, Worse Quality of pain: Sharp, Stabbing Severity: Severe Pain Level: 5 Skin Character: Abscess Quality of rash: Painful Exacerbated by: Walking Relieved by: Denies Similar symptoms previously: Yes Recently seen / treated by doctor: No - Related Data Allergies/Adverse Reactions: No Known Allergies Allergy (Verified 05/28/18 17:26) Past Medical History - General Information source: Patient - Social History Smoking Status: Never Smoker Cigarette use (# per day): No Chew tobacco use (# tins/day): No Smoking Education Provided: No Frequency of alcohol use: Social Drug Abuse: None 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 Lives with: Alone - kids Family History: Arthritis, CAD, CVA, DM, Hyperlipidemia, Hypertension, Malignancy, Thyroid Disfunction Patient has suicidal ideation: No Patient has homicidal ideation: No - Past Medical History Cardiac Medical History: Reports: None Pulmonary Medical History: Reports: Hx Bronchitis, Hx Pneumonia EENT Medical History: Reports: None Neurological Medical History: Reports: None Endocrine Medical History: Reports: None Renal/ Medical History: Reports: None Malignancy Medical History: Reports: None Musculoskeletal Medical History: Reports None Skin Medical History: Reports Hx MRSA Psychiatric Medical History: Reports: None Traumatic Medical History: Reports: None Infectious Medical History: Reports: Hx MRSA Past Surgical History: Reports: Hx Tonsillectomy - Immunizations Hx Diphtheria, Pertussis, Tetanus Vaccination: No - declined Review of Systems - Review of Systems Constitutional: No symptoms reported EENT: No symptoms reported Cardiovascular: No symptoms reported Respiratory: No symptoms reported Gastrointestinal: No symptoms reported Genitourinary: No symptoms reported Female Genitourinary: No symptoms reported Musculoskeletal: No symptoms reported Skin: No symptoms reported Hematologic/Lymphatic: No symptoms reported Neurological/Psychological: No symptoms reported Physical Exam - Vital signs Vitals: Temp Pulse Resp BP Pulse Ox 98.1 F 85 16 113/78 100 07/02/18 09:18 07/02/18 09:18 07/02/18 09:18 07/02/18 09:18 07/02/18 09:18 Interpretation: Normal - General General appearance: Appears well, Alert - HEENT Head: Normocephalic, Atraumatic Eyes: Normal Pupils: PERRL - Respiratory Respiratory status: No respiratory distress Chest status: Nontender Breath sounds: Normal Chest palpation: Normal - Cardiovascular Rhythm: Regular Heart sounds: Normal auscultation Murmur: No - Abdominal Inspection: Normal Distension: No distension Bowel sounds: Normal Tenderness: Nontender Organomegaly: No organomegaly - Back Back: Normal, Nontender - Extremities General upper extremity: Normal inspection, Nontender, Normal color, Normal ROM , Normal temperature General lower extremity: Normal color, Normal ROM, Normal temperature, Normal weight bearing. No: Geno's sign Thigh: Tender, Other - abscess - Neurological Neuro grossly intact: Yes Cognition: Normal Orientation: AAOx4 [place] Coma Scale Eye Opening: Spontaneous [place] Coma Scale Verbal: Oriented [place] Coma Scale Motor: Obeys Commands Memo Coma Scale Total: 15 Speech: Normal Motor strength normal: LUE, RUE, LLE, RLE Sensory: Normal - Psychological Associated symptoms: Normal affect, Normal mood - Skin Skin Temperature: Warm Skin Moisture: Dry Skin Color: Normal Skin irregularity: Abscess Location of irregularity: Other - right thigh Irregularity with: Swelling, Tenderness, Warmth Course - Re-evaluation Re-evalutation: 07/02/18 09:41 Treated with [place] Bactrim and Keflex and discharged home with [place] Bactrim and Keflex prescriptions. Patient to follow-up with her primary doctor. - Vital Signs Vital signs: Temp Pulse Resp BP Pulse Ox 98.1 F 85 16 113/78 100 07/02/18 09:18 07/02/18 09:18 07/02/18 09:18 07/02/18 09:18 07/02/18 09:18 Procedures - Incision and Drainage Right Hip Time completed: 09:31 Type: Simple Anesthetic type: 1% Lidocaine mL's of anesthetic: 5 Blade size: 11 I&D procedure: Shurclens applied, Sterile dressing applied Incision Method: Incision made by scalpel Amount/type of drainage: moderate amount purulent drainage Discharge - Discharge Clinical Impression: abscess right hip superficial Condition: Stable Disposition: HOME, SELF-CARE Instructions: Family Physicians / Practices Additional Instructions: ABSCESS: You have an abscess (boil). This a pus-forming infection, usually due to staph. Some boils may be left to drain on their own, but most require lancing. From the time the tender lump first appears, it may be three or four days before the abscess is ready to kevan. Local heat and rest help at this stage of treatment. An antibiotic may prevent spread of the infection. Once the abscess is opened, packing may be placed into it. This is done so pus is not sealed inside by premature closure of the cavity. The packing will be removed at your follow-up visit or you may be advised to remove it yourself at home. Sometimes this packing must be replaced a few times during healing. The wound will heal with surprisingly little scar. Depending on the size and location of an abscess, healing can take one to four weeks. You may shower and wash the area around the incision site two or three times a day. Antibiotics may be prescribed, but are usually not necessary after an abscess has been drained. If you develop fever, chills, worsening pain, or increasing swelling in the area, call the doctor or return immediately. POST INCISION AND DRAINAGE: You have had an incision made to allow drainage of an abscess. The incision must remain open so that pus and debris can drain from the wound. If the abscess cavity is large, packing is placed. This keeps the tissues from collapsing and trapping pus inside, while the body shrinks the cavity. The packing may need to be replaced every day or two. The physician will instruct you on the packing. Keep a bulky dressing over the area. Replace it if it becomes saturated with blood or pus. Do not disturb the packing (if present). You may shower and cleanse the area with gentle soap and warm water two or three times a day. Local warmth may be soothing, and may promote faster healing. Return if you develop high fever or chills, or if you note spreading redness, increasing swelling, or increasing tenderness. MRSA CELLULITIS: You have an infection of your skin and underlying soft tissues called cellulitis. This is due to bacteria, which can enter through any break in the skin, or even through an irritated hair follicle. Untreated, cellulitis will usually worsen and may form an abscess which requires draining. Although many bacterial organisms can cause cellulitis and abscess formations, the most likely bacteria is Methicillin-Resistant Staph Aureus, or MRSA for short. Antibiotics are required. Usually, warm packs or warm soaks, and elevation of the infected area are recommended. You should start getting better within 24 to 36 hours. Most infections respond quickly to the right medication. Follow-up care is important, however, to check for abscess (boil) formation, unsuspected foreign body, or resistant infection. If you develop fever, chills, or if the area of infection is becoming rapidly more swollen or painful, call the doctor at once. ORAL NARCOTIC MEDICATION: You have been given a prescription for pain control. This medication is a narcotic. It's best taken with food, as nausea can result if taken on an empty stomach. Don't operate machinery or drive within six hours of taking this medication. Do not combine this medicine with alcohol, or with any medication which can cause sedation (such as cold tablets or sleeping pills) unless you get permission from the physician. Narcotics tend to cause constipation. If possible, drink plenty of fluids and eat a diet high in fiber and fruits. CEPHALEXIN: The antibiotic you've been prescribed is a member of the cephalosporin class. This type of antibiotic covers a wide variety of infections, including those of the skin, lungs, and urinary tract. It's useful for staph infections. This antibiotic is slightly similar to the penicillin family. In rare cases , a person who is allergic to penicillin will also be allergic to this medication. If you have had a severe allergic reaction to penicillin, and have not taken this antibiotic since that time, notify your doctor. Antibiotics which cover many germs ("broad spectrum" antibiotics) are more likely to cause diarrhea or "yeast" infections. Women prone to vaginal yeast problems may suffer an attack after taking this antibiotic. In infants, oral thrush (white spots "stuck" on the cheek) or yeast diaper rash may result. See your doctor if these problems occur. Call at once if you develop itching, hives , shortness of breath, or lightheadedness. TRIMETHOPRIM-SULFA: You have been given a prescription for trimethoprim-sulfa (TMS, Septra, Bactrim). This is a combination antibiotic of the sulfa class, often used for urinary tract infections, middle ear infections, bronchitis, shigella intestinal infection, and Pneumocystis pneumonia. TMS is usually well-tolerated. Occasional side effects include nausea and decreased appetite. Septra is not recommended for infants less than two months of age. Do not take this medication if you have experienced severe side effects or allergy to sulfa medicine. You should stop this medicine at once and contact your physician if you develop any rash, joint pain, shortness of breath, bruising, or jaundice ( yellow color in the skin), or if you develop any other new or unusual symptoms. Epsom Salt Soaks Soak the wound area in a container of warm epsom salt water. If you can't get the wound area into a bucket or horvath, use a folded towel soaked in the epsom salt solution and apply to the area. Use clean hot tap water (about the temperature of a very warm bath), mixing in about one (1) teaspoon for every pint of water. Two gallon --> 16 teaspoons Epsom Salts One gallon --> 8 teaspoons Epsom Salts Two quarts --> 4 teaspoons Epsom Salts One quart --> 2 teaspoons Epsom Salts Soak the wound for about 20 minutes while gently moving it around in the water. Repeat this four (4) times a day. FOLLOW-UP CARE: Most simple abscesses will not require a follow up visit. If you had packing placed in the abscess, remove it as instructed by the physician. If you have been referred to a physician for follow-up care, call the physicians office for an appointment as you were instructed or within the next two days. If you experience worsening or a significant change in your symptoms, return to the Emergency Department at any time for re-evaluation. Prescriptions: Hydrocodone/Acetaminophen [[place] 5-325 mg Tablet] 1 tab PO Q6HP PRN #5 tablet PRN Reason: Cephalexin Monohydrate [Keflex 500 mg Capsule] 500 mg PO Q6H 5 Days capsule Sulfamethoxazole/Trimethoprim [Bactrim Ds Tablet] 1 each PO BID #20 tablet Forms: Return to Work Referrals: RASHMI COOK MD [Primary Care Provider] - Follow up as needed
[2018-07-02 09:19] VITALS: BP 113/78
[2018-07-02] MEDS ORDERED: SULFAMETHOXAZOLE/TRIMETHOPRIM 800-160 MG TABLET PO ONE (09:30)
[2018-07-02] MEDS ORDERED: HYDROCODONE/ACETAMINOPHEN 5-325 MG TABLET PO ONE (09:30)
[2018-07-02] MEDS ORDERED: CEPHALEXIN 500 MG CAPSULE PO ONE (09:30)
== END 2018-07-02 09:43 | disposition home or self-care (01) ==
LOC: ER 08:20
DX: L02.415 Cutaneous abscess of right lower limb (principal); Z86.14 Personal history of Methicillin resistant Staphylococcus aureus infection
CPT/HCPCS: 87070; 87077; 87186; 87205; 99283

== ENCOUNTER 2019-07-12 09:31 | Emergency (ER) | payer BC ==
[2019-07-12] MEDS ORDERED: KETOROLAC TROMETHAMINE INJ/PF 30 MG/1 ML SDV IV ONE (10:29)
[2019-07-12] MEDS ORDERED: METOCLOPRAMIDE HCL INJ/PF 10 MG/2 ML SDV IV ONE (10:29)
[2019-07-12] MEDS ORDERED: DIPHENHYDRAMINE HCL 50 MG/ML VIAL IV ONE (10:29)
[2019-07-12] MEDS ORDERED: NORMAL SALINE 1000 ML 1,000 ML IV ONE (10:30)
--- NOTE | 2019-07-12 10:31 | ER Document Report ---
ED Medical Screen (RME) - General Chief Complaint: Headache Stated Complaint: HEADACHE,NECK PAIN Time Seen by Provider: 07/12/19 10:21 Mode of Arrival: Ambulatory Information source: Patient Notes: Patient is a 28-year-old female presenting with headache that began 2 days ago. She reports headache is located on the right side of her head, had a gradual onset. She reports associated fevers and ear pain. She denies history of migraines. Exam: Exam: Bilateral TMs unremarkable. No focal neurological deficits noted. I have greeted and performed a rapid initial assessment of this patient. A comprehensive ED assessment and evaluation of the patient, analysis of test results and completion of the medical decision making process will be conducted by additional ED providers. I have specifically instructed the patient or family members with the patient to immediately return to any nursing staff should anything change in the patient's condition or with their chief complaint. This medical record was dictated with voice recognizing software. There may be grammatical, syntax errors that are unintended. TRAVEL OUTSIDE OF THE [place] IN LAST 30 DAYS: No - Related Data Allergies/Adverse Reactions: No Known Allergies Allergy (Verified 07/12/19 09:35) Past Medical History Pulmonary Medical History: Reports: Hx Bronchitis, Hx Pneumonia Renal/ Medical History: Denies: Hx Peritoneal Dialysis Skin Medical History: Reports Hx MRSA Infectious Medical History: Reports: Hx MRSA Past Surgical History: Reports: Hx Tonsillectomy - Immunizations Hx Diphtheria, Pertussis, Tetanus Vaccination: No - declined Physical Exam - Vital signs Vitals: Temp Pulse Resp BP Pulse Ox 98.8 F 90 16 118/79 97 07/12/19 09:39 07/12/19 09:39 07/12/19 09:39 07/12/19 09:39 07/12/19 09:39 Course - Vital Signs Vital signs: Temp Pulse Resp BP Pulse Ox 98.8 F 90 16 118/79 97 07/12/19 09:39 07/12/19 09:39 07/12/19 09:39 07/12/19 09:39 07/12/19 09:39
--- NOTE | 2019-07-12 11:46 | ER Document Report ---
ED General - General Chief Complaint: Headache Stated Complaint: HEADACHE,NECK PAIN Time Seen by Provider: 07/12/19 10:21 Mode of Arrival: Ambulatory Notes: 28 year old nontoxic female arrives with compliants of headache for the last few days which is worse today. Subjective fever at home. Child with strep + culture about a week ago. No rash. No back pain or stiff neck. TRAVEL OUTSIDE OF THE [place] IN LAST 30 DAYS: No - HPI Patient complains to provider of: headache Onset: Yesterday Onset/Duration: Gradual Quality of pain: Achy, Throbbing Severity: Moderate Associated symptoms: Fever, Headache Exacerbated by: Denies Relieved by: Denies - Related Data Allergies/Adverse Reactions: No Known Allergies Allergy (Verified 07/12/19 09:35) Past Medical History - General Information source: Patient - Social History Smoking Status: Current Every Day Smoker Family History: Arthritis, CAD, CVA, DM, Hyperlipidemia, Hypertension, Malignancy, Thyroid Disfunction Patient has suicidal ideation: No Patient has homicidal ideation: No Pulmonary Medical History: Reports: Hx Bronchitis, Hx Pneumonia Renal/ Medical History: Denies: Hx Peritoneal Dialysis Skin Medical History: Reports Hx MRSA Infectious Medical History: Reports: Hx MRSA Past Surgical History: Reports: Hx Tonsillectomy - Immunizations Hx Diphtheria, Pertussis, Tetanus Vaccination: No - declined Review of Systems - Review of Systems Constitutional: No symptoms reported EENT: No symptoms reported Cardiovascular: No symptoms reported Respiratory: No symptoms reported Gastrointestinal: No symptoms reported Genitourinary: No symptoms reported Female Genitourinary: No symptoms reported Musculoskeletal: No symptoms reported Skin: No symptoms reported Hematologic/Lymphatic: No symptoms reported Neurological/Psychological: No symptoms reported Physical Exam - Vital signs Vitals: Temp Pulse Resp BP Pulse Ox 98.8 F 90 16 118/79 97 07/12/19 09:39 07/12/19 09:39 07/12/19 09:39 07/12/19 09:39 07/12/19 09:39 Interpretation: Normal - General General appearance: Appears well, Alert - HEENT Head: Normocephalic, Atraumatic, Other - right parietal ttp with out deformity. Eyes: Normal Pupils: PERRL - Respiratory Respiratory status: No respiratory distress Chest status: Nontender Breath sounds: Normal Chest palpation: Normal - Cardiovascular Rhythm: Regular Heart sounds: Normal auscultation Murmur: No - Abdominal Inspection: Normal Distension: No distension Bowel sounds: Normal Tenderness: Nontender Organomegaly: No organomegaly - Back Back: Normal, Nontender - Extremities General upper extremity: Normal inspection, Nontender, Normal color, Normal ROM, Normal temperature General lower extremity: Normal inspection, Nontender, Normal color, Normal ROM, Normal temperature, Normal weight bearing. No: Geno's sign - Neurological Neuro grossly intact: Yes Cognition: Normal Orientation: AAOx4 [place] Coma Scale Eye Opening: Spontaneous Memo Coma Scale Verbal: Oriented Memo Coma Scale Motor: Obeys Commands [place] Coma Scale Total: 15 Speech: Normal Sensory: Normal - Psychological Associated symptoms: Normal affect, Normal mood - Skin Skin Temperature: Warm Skin Moisture: Dry Skin Color: Normal Course - Re-evaluation Re-evalutation: 07/12/19 11:47 MDM 28 year old with headache that may be tension or migraine or possibly related to strep exposure. No tick bite. No concerning symptoms at this time. Will treat with amoxil and her headache is better. - Vital Signs Vital signs: Temp Pulse Resp BP Pulse Ox 98.8 F 90 16 118/79 97 07/12/19 09:39 07/12/19 09:39 07/12/19 09:39 07/12/19 09:39 07/12/19 09:39 Discharge - Discharge Clinical Impression: Headache Qualifiers: Headache type: unspecified Headache chronicity pattern: acute headache Intractability: not intractable Qualified Code(s): R51 - Headache Condition: Good Disposition: HOME, SELF-CARE Instructions: Headache ([facility]) Additional Instructions: See your doctor in followup. Rest. Please take the medicine as directed. Return here for any problems or any concerns. Prescriptions: Amoxicillin 1 tab PO TID #30 tab Ibuprofen [Motrin 600 Mg Tablet] 600 mg PO TID #15 tablet
[2019-07-12 12:02] VITALS: BP 115/74
== END 2019-07-12 11:51 | disposition home or self-care (01) ==
LOC: ER 09:31
DX: R51 Headache (principal); M54.2 Cervicalgia; Z86.14 Personal history of Methicillin resistant Staphylococcus aureus infection
CPT/HCPCS: J1200; J1885; J2765; J7030; 96361; 96374; 96375; 99283

== ENCOUNTER 2019-11-14 06:11 | Emergency (ER) | payer BC ==
[2019-11-14 06:59] LABS: A TYPE INFLUENZA AG NEGATIVE (NEGATIVE); B INFLUENZA AG NEGATIVE (NEGATIVE)
[2019-11-14 08:25] VITALS: BP 135/81
--- NOTE | 2019-11-14 09:12 | ER Document Report ---
ED General - General Chief Complaint: Flu Symptoms Stated Complaint: FLU LIKE SYMPTOMS Time Seen by Provider: 11/14/19 08:00 Primary Care Provider: [facility] [Provider Group] - Follow up in 3-5 days BRIAN HERBERT MD [COMMUNITY BASED STAFF] - Follow up in 3-5 days Notes: 29-year-old female presents with sore throat, subjective fever, chills, headache, body aches, nonproductive cough. Patient states started off as a sore throat for past few weeks and started to have the other symptoms yesterday. Patient states she has not taken any medication for this. Patient denies any nausea/vomiting, abdominal pain, chest pain, coughing up anything. TRAVEL OUTSIDE OF THE [place] IN LAST 30 DAYS: No - Related Data Allergies/Adverse Reactions: No Known Allergies Allergy (Verified 07/12/19 09:35) Past Medical History - Social History Smoking Status: Never Smoker Family History: Arthritis, CAD, CVA, DM, Hyperlipidemia, Hypertension, Malignancy, Thyroid Disfunction Patient has suicidal ideation: No Patient has homicidal ideation: No Pulmonary Medical History: Reports: Hx Bronchitis, Hx Pneumonia Renal/ Medical History: Denies: Hx Peritoneal Dialysis Skin Medical History: Reports Hx MRSA Infectious Medical History: Reports: Hx MRSA Past Surgical History: Reports: Hx Tonsillectomy - Immunizations Hx Diphtheria, Pertussis, Tetanus Vaccination: No - declined Review of Systems - Review of Systems Notes: Constitutional: Positive for subjective fever and chills. HENT: Positive for sore throat and nonproductive cough. Eyes: Negative for visual changes. Cardiovascular: Negative for chest pain. Respiratory: Negative for shortness of breath. Gastrointestinal: Negative for abdominal pain, vomiting or diarrhea. Genitourinary: Negative for dysuria. Musculoskeletal: Positive for myalgias. Negative for back pain. Skin: Negative for rash. Neurological: Positive for headaches. Negative for weakness or numbness. 10 point ROS negative except as marked above and in HPI. Physical Exam - Vital signs Vitals: Temp Pulse Resp BP Pulse Ox 99.8 F 110 H 18 134/84 H 99 11/14/19 06:18 11/14/19 06:18 11/14/19 06:18 11/14/19 06:18 11/14/19 06:18 - Notes Notes: GENERAL: Well-appearing, well-nourished and in no acute distress. HEAD: Atraumatic, normocephalic. EYES: Extraocular movements intact, sclera anicteric, conjunctiva are normal. ENT: TMs normal, nares patent, oropharynx clear without exudates. Moist mucous membranes. Uvula midline without edema. No muffled voice. No trismus. No OCCUPATIONAL NURSE. NECK: Normal range of motion, supple without lymphadenopathy or JVD. LUNGS: Breath sounds clear to auscultation bilaterally and equal. No wheezes rales or rhonchi. HEART: Regular rate and rhythm without murmurs, rubs or gallops. EXTREMITIES: Normal range of motion, no pitting or edema. No clubbing or cyanosis. NEUROLOGICAL: Cranial nerves II through XII grossly intact. Normal speech, normal gait. PSYCH: Normal mood, normal affect. SKIN: Warm, Dry, normal turgor, no rashes or lesions noted. Course - Re-evaluation Re-evalutation: 11/14/19 nontoxic, well-appearing 29-year-old female presents with symptoms consistent with viral URI/flulike symptoms. Patient is afebrile. Heart rate has improved without intervention. Uvula midline without edema. No trismus. No muffled voice. No OCCUPATIONAL NURSE. Patient given symptomatic relief with close follow- up with PCP. Strict return precautions given. Patient voices understanding and agrees with plan of care. - Vital Signs Vital signs: Temp Pulse Resp BP Pulse Ox 98.7 F 104 H 18 135/81 H 100 11/14/19 08:21 11/14/19 08:21 11/14/19 08:21 11/14/19 08:21 11/14/19 08:21 Discharge - Discharge Clinical Impression: Viral URI, Flu-like symptoms Condition: Stable Disposition: HOME, SELF-CARE Instructions: Upper Respiratory Illness ([facility]) Additional Instructions: Please take medications as prescribed. Please drink plenty of fluids. Alternate Tylenol/Motrin every 3 hours, for example take Tylenol now 3 hours later take Motrin and then 3 hours after that take Tylenol Septra. Please follow-up with your primary care doctor 1 of the clinics listed in 3 to 5 days. Return to ER for any worsening symptoms, including fever not controlled by medication, nausea/vomiting, abdominal pain, coughing up blood, chest pain, shortness of breath, or any other symptoms that are concerning to you. Prescriptions: Benzonatate [Tessalon [place] 100 mg Capsule] 100 mg PO Q8HP PRN #40 cap PRN Reason: Fexofenadine/Pseudoephedrine [Cinthya-D 24 Hour Tablet] 1 each PO DAILY #20 tab. er.24h Fluticasone Propionate [Flonase Nasal [place] 50 Mcg/[place] 16 gm] 2 sprays NASL Q12 #1 inhaler Forms: Return to Work Referrals: BRIAN HERBERT MD [COMMUNITY BASED STAFF] - Follow up in 3-5 days [facility] [Provider Group] - Follow up in 3-5 days
== END 2019-11-14 09:30 | disposition home or self-care (01) ==
LOC: ER 06:11
DX: J06.9 Acute upper respiratory infection, unspecified (principal); B97.89 Other viral agents as the cause of diseases classified elsewhere; J02.9 Acute pharyngitis, unspecified; R68.83 Chills (without fever); R51 Headache; R05 Cough; M79.10 Myalgia, unspecified site
CPT/HCPCS: 87070; 87804; 87880; 99283